=== PATIENT | female | born 1990 | race Caucasian/White ===

== ENCOUNTER 2018-03-12 10:49 | Day surgery (SDC) | payer BC ==
[2018-03-05 15:33] VITALS: BMI 33.6
[2018-03-12 11:35] VITALS: TEMP 98.4
[2018-03-12] MEDS ORDERED: PROPOFOL 20 ML ONE (12:26)
[2018-03-12 13:50] VITALS: BP 118/67; PULSE 69
--- NOTE | 2018-03-17 14:39 | PATH ---
Surgical Pathology Report Patient Name: DONALD NUGENT [facility]. Rec. #: [id number] /Age/Gender: 1990 (Age: 27) / F Account: [id number] Location: [facility] Taken: 03/12/2018 Received: 03/12/2018 Reported: 03/17/2018 Physicians: Leanne Colbert M.D. Specimen(s) Received A: BX DUODENUM 2ND PORTION B: BX ANTRUM C: BX GE JUNCTION Clinical History Abdominal pain Postoperative diagnosis: Gastritis Final Diagnosis A. SECOND PORTION OF DUODENUM, BIOPSY: DUODENAL MUCOSA WITH NO PATHOLOGIC FINDINGS. B. ANTRUM, BIOPSY: MODERATE CHRONIC ACTIVE GASTRITIS. IMMUNOSTAIN IS NEGATIVE FOR H. PYLORI ORGANISMS. C. GE JUNCTION, BIOPSY: ESOPHAGOGASTRIC JUNCTIONAL (SQUAMOCOLUMNAR) MUCOSA SHOWING MODERATE CHRONIC INFLAMMATION. NEGATIVE FOR INTESTINAL METAPLASIA. Electronically Signed Veronica Ramirez M.D. Gross Description A. Received in formalin, labeled "biopsy second portion of duodenum" is a cain, irregular portion of soft tissue measuring 0.5 cm. in greatest dimension. The specimen is submitted in toto in one cassette. B. Received in formalin, labeled "biopsy antrum" is a cain, irregular portion of soft tissue measuring 0.3 cm. in greatest dimension. The specimen is submitted in toto in one cassette. C. Received in formalin, labeled "biopsy GE junction" are 2 cain, irregular portions of soft tissue measuring 0.2 and 0.4 cm. in greatest dimension. The specimens are submitted in toto in one cassette. 03/13/2018 saudi03/13/2018
== END 2018-03-12 13:45 | disposition home or self-care (01) ==
LOC: FASU-ENDO 10:49
PROVIDERS: ATTEND Internal Medicine Gastroenterology
PROC: 0DB78ZX Excision of Stomach, Pylorus, Via Natural or Artificial Opening Endoscopic, Diagnostic (ICD-10-PCS; 2018-03-12)
PROC: 0DB48ZX Excision of Esophagogastric Junction, Via Natural or Artificial Opening Endoscopic, Diagnostic (ICD-10-PCS; 2018-03-12)
PROC: 0DB98ZX Excision of Duodenum, Via Natural or Artificial Opening Endoscopic, Diagnostic (ICD-10-PCS; principal; 2018-03-12 11:45)
DX: K29.70 Gastritis, unspecified, without bleeding (principal)
CPT/HCPCS: 84703; 88305-TC; 88342-TC